=== PATIENT | male | born 1990 ===

== ENCOUNTER 2017-06-22 20:30 | Emergency (ER) | payer SELFPAY ==
[2017-06-22 20:31] VITALS: BMI 22.6
[2017-06-22 20:40] VITALS: BP 139/79; TEMP 98.2
[2017-06-22] MEDS ORDERED: Albuterol-Ipratrop 3 mg / 0.5 (3 ml) UD INH STA (21:08)
--- NOTE | 2017-06-22 21:30 | ED PDOC ---
HPI: SOB/CHF/COPD Time Seen by Provider: 06/22/17 20:43 Chief Complaint (Nursing): Shortness Of Breath Chief Complaint (Provider): Shortness of breath, asthma exacerbation History Per: Patient History/Exam Limitations: no limitations Onset/Duration Of Symptoms: Hrs Current Symptoms Are (Timing): Still Present Additional Complaint(s): The patient is a 26yo male, past medical history of asthma, presents to the ED for evaluation of chest tightness and shortness of breath, present since 1600. Patient also reports cough, rhinorrhea and sore throat since yesterday; patient states URI symptoms usually triggers his asthma exacerbation but the patient has not had an episode in a while so he did not have an inhaler to use. Patient states his symptoms worsened over time, prompting his visit to the ED. Patient reports green sputum but denies any hemoptysis; he denies any fever or chills but reports intermittent sweats last day. Patient denies any vomiting, diarrhea , outright chest pain. He offers no additional medical complaints. PCP: None provided Past Medical History Reviewed: Historical Data, Nursing Documentation, Vital Signs Vital Signs: Last Vital Signs Temp 98.2 F 06/22/17 20:33 Pulse 70 06/22/17 21:32 Resp 20 06/22/17 20:33 BP 139/79 06/22/17 20:33 Pulse Ox 94 L 06/22/17 21:32 - Medical History PMH: Asthma Denies: Chronic Kidney Disease - Surgical History Surgical History: No Surg Hx - Family History Family History: States: No Known Family Hx - Social History Current smoker - smoking cessation education provided: Yes Alcohol: None Drugs: Denies - Immunization History Hx Tetanus Toxoid Vaccination: No - Home Medications Home Medications: Ambulatory Orders Medication Instructions Recorded Amoxicillin/Clavulanate [Augmentin 1 tab PO BID #14 tab 02/15/16 875 MG-125 MG] Fluticasone Nasal [Flonase] 2 actuation NS DAILY #1 bottle 02/15/16 Albuterol HFA [Ventolin HFA 90 2 inhaler INH PRN PRN 08/27/16 mcg/actuation (8 g)] Ondansetron ODT [Zofran ODT] 8 mg PO TID #16 odt 08/27/16 Albuterol HFA [Ventolin HFA 90 2 puff IH Q4H PRN #1 inh 06/22/17 mcg/actuation (8 g)] Prednisone 50 mg PO DAILY #4 tablet 06/22/17 - Allergies Allergies/Adverse Reactions: Allergies Allergy/AdvReac Type Severity Reaction Status Date / Time No Known Allergies Allergy Verified 02/15/16 08:47 Review of Systems ROS Statement: Except As Marked, All Systems Reviewed And Found Negative Constitutional: Positive for: Sweats. Negative for: Fever, Chills Cardiovascular: Negative for: Chest Pain Respiratory: Positive for: Cough, Shortness of Breath, Sputum (green). Negative for: Hemoptysis Gastrointestinal: Negative for: Vomiting, Diarrhea Physical Exam - Reviewed Nursing Documentation Reviewed: Yes Vital Signs Reviewed: Yes - Physical Exam Appears: Positive for: Non-toxic, In Acute Distress Head Exam: Positive for: ATRAUMATIC, NORMOCEPHALIC Skin: Positive for: Warm, Dry Eye Exam: Positive for: EOMI, PERRL ENT: Negative for: Pharyngeal Erythema, Tonsillar Exudate Neck: Positive for: Painless ROM, Supple Cardiovascular/Chest: Positive for: Regular Rate, Rhythm, Chest Non Tender. Negative for: Murmur Respiratory: Positive for: Wheezing, Respiratory Distress. Negative for: Accessory Muscle Use, Rales, Rhonchi Gastrointestinal/Abdominal: Positive for: Soft. Negative for: Tenderness Back: Positive for: Normal Inspection. Negative for: Vertebral Tenderness Extremity: Positive for: Normal ROM. Negative for: Deformity Lymphatic: Negative for: Adenopathy Neurologic/Psych: Positive for: Alert. Negative for: Motor/Sensory Deficits - ECG ECG: Positive for: Interpreted By Me, Viewed By Me ECG Rhythm: Positive for: Normal QRS, Normal ST Segment, Sinus Rhythm Rate: 70 O2 Sat by Pulse Oximetry: 94 (RA) - Progress Re-evaluation Time: 23:00 Condition: Improved Medical Decision Making Medical Decision Making: Time: 2107 Impression: Asthma exacerbation, URI Plan: -- DUoneb 6ml INH -- SOlumedrol 125 mg IM Reassess Scribe Attestation: Documented by Piper Juarez acting as a scribe for Alicia Kern MD. Provider Attestation: All medical record entries made by the Scribe were at my direction and personally dictated by me. I have reviewed the chart and agree that the record accurately reflects my personal performance of the history, physical exam, medical decision making, and the department course for this patient. I have also personally directed, reviewed, and agree with the discharge instructions and disposition. Disposition - Clinical Impression Clinical Impression: Asthma exacerbation - Disposition Referrals: [facility] [place] (CALL SATURDAY TO SETUP APPOINTMENT BY END OF WEEK) [facility] [Outside] Disposition Time: 23:00 Condition: IMPROVED Prescriptions: Albuterol HFA [Ventolin HFA 90 mcg/actuation (8 g)] 2 puff IH Q4H PRN #1 inh PRN Reason: ASTHMA Prednisone 50 mg PO DAILY #4 tablet Instructions: Asthma (ED) Forms: [employer] (Bengali)
[2017-06-22 21:32] VITALS: PULSE 70
[2017-06-22 23:13] VITALS: O2SAT 98
[2017-06-22 23:31] VITALS: RESP 17
--- NOTE | 2017-06-23 09:38 | CARD ---
APPROVED REPORT EKG Measurement Heart [id number] <Conclusion> Normal sinus rhythm with sinus arrhythmia Normal ECG
== END 2017-06-22 23:14 | disposition home or self-care (01) ==
LOC: H.ER 20:30
DX: J45.901 Unspecified asthma with (acute) exacerbation (principal)
CPT/HCPCS: 93005; 96372; 99282; J2930

== ENCOUNTER 2017-10-01 20:57 | Emergency (ER) | payer MEDICAID, OTHER ==
[2017-10-01 20:57] VITALS: BMI 22.6
[2017-10-01 21:09] VITALS: BP 139/85; PULSE 94; RESP 18; TEMP 98; O2SAT 95
[2017-10-01] MEDS ORDERED: Albuterol-Ipratrop 3 mg / 0.5 (3 ml) UD INH STA ×2 (21:18→21:19)
--- NOTE | 2017-10-01 21:37 | ED PDOC ---
HPI: SOB/CHF/COPD Time Seen by Provider: 10/01/17 21:11 Chief Complaint (Nursing): Shortness Of Breath Chief Complaint (Provider): Shortness Of Breath History Per: Patient History/Exam Limitations: no limitations Onset/Duration Of Symptoms: Mins (x30) Current Symptoms Are (Timing): Still Present Additional Complaint(s): 26 year old male with a past medical history of asthma, presents to the ER complaining of chest tightness and shortness of breath for 30 mins. Reports he was at work and came outside to Cover home when he suddenly felt tight in the chest. States his symptoms are characteristic of usual asthma exacerbation for him. His usual triggers are changes in weather. Denies any associated fever, nausea, vomiting, or runny nose. PMD: Non-[facility] provider Past Medical History Reviewed: Historical Data, Nursing Documentation, Vital Signs Vital Signs: Last Vital Signs Temp 98 F 10/01/17 21:06 Pulse 94 H 10/01/17 21:06 Resp 18 10/01/17 21:06 BP 139/85 10/01/17 21:06 Pulse Ox 95 10/01/17 21:40 - Medical History PMH: Asthma Denies: Chronic Kidney Disease - Family History Family History: States: Unknown Family Hx - Social History Current smoker - smoking cessation education provided: Yes (occasional) Alcohol: Occasional Drugs: Denies - Immunization History Hx Tetanus Toxoid Vaccination: No - Home Medications Home Medications: Ambulatory Orders Medication Instructions Recorded Albuterol HFA [Ventolin HFA 90 2 puff IH Q4H PRN #1 inh 06/22/17 mcg/actuation (8 g)] Ibuprofen [Motrin] 600 mg PO TID #30 tab 07/30/17 oxyCODONE/Acetaminophen [Percocet 1 ea PO Q6 #8 tab 07/30/17 5/325 mg Tab] Albuterol HFA [Ventolin HFA 90 1 - 2 puff IH Q6 PRN #1 inhaler 10/01/17 mcg/actuation (8 g)] predniSONE [predniSONE Tab] 60 mg PO QAM #12 tab 10/01/17 - Allergies Allergies/Adverse Reactions: Allergies Allergy/AdvReac Type Severity Reaction Status Date / Time No Known Allergies Allergy Verified 07/31/17 11:33 Review of Systems ROS Statement: Except As Marked, All Systems Reviewed And Found Negative Constitutional: Negative for: Fever ENT: Negative for: Nose Congestion Cardiovascular: Positive for: Other (chest tightness) Respiratory: Positive for: Shortness of Breath Gastrointestinal: Negative for: Nausea, Vomiting Physical Exam - Reviewed Nursing Documentation Reviewed: Yes Vital Signs Reviewed: Yes - Physical Exam Appears: Positive for: Non-toxic, No Acute Distress Head Exam: Positive for: ATRAUMATIC, NORMOCEPHALIC Skin: Positive for: Normal Color, Warm, Dry Eye Exam: Positive for: EOMI, Normal appearance, PERRL ENT: Positive for: Normal ENT Inspection Neck: Positive for: Normal, Painless ROM, Supple Cardiovascular/Chest: Positive for: Regular Rate, Rhythm. Negative for: Murmur Respiratory: Positive for: Wheezing (Bilateral expiratory wheezing at the bases) . Negative for: Respiratory Distress Pulses-Radial (L): 2+ Pulses-Radial (R): 2+ Gastrointestinal/Abdominal: Positive for: Normal Exam, Soft. Negative for: Tenderness Back: Positive for: Normal Inspection. Negative for: L CVA Tenderness, R CVA Tenderness, Vertebral Tenderness Extremity: Positive for: Normal ROM. Negative for: Pedal Edema, Deformity Neurologic/Psych: Positive for: Alert, Oriented - ECG O2 Sat by Pulse Oximetry: 95 (RA) Pulse Ox Interpretation: Normal Medical Decision Making Medical Decision Making: Time: 21:18 Initial Impression: 26 y/o male with shortness of breath in setting of known asthma Initial Plan: --EKG --Prednisone 60 mg PO --Duoneb 3ml INH x2 --Peak Flow pre/post treatment --Pending reevaluation Upon provider reevaluation, patient reports improvement in symptoms. Stable for discharge home. Patient will follow up with PMD for further evaluation. There is agreement to discharge plan. Return if symptoms persist or worsen. Clinical Impression: Asthma exacerbation Scribe Attestation: Documented by Mora Ledesma, acting as a scribe for Amish Mendez MD Provider Scribe Attestation: All medical record entries made by the Scribe were at my direction and personally dictated by me. I have reviewed the chart and agree that the record accurately reflects my personal performance of the history, physical exam, medical decision making, and the department course for this patient. I have also personally directed, reviewed, and agree with the discharge instructions and disposition. Disposition - Clinical Impression Clinical Impression: Asthma exacerbation - Patient ED Disposition Is Patient to be Admitted: No Counseled Patient/Family Regarding: Diagnosis, Need For Followup - Disposition Disposition: Routine/Home Disposition Time: 22:15 Condition: IMPROVED Prescriptions: Albuterol HFA [Ventolin HFA 90 mcg/actuation (8 g)] 1 - 2 puff IH Q6 PRN #1 inhaler PRN Reason: Shortness Of Breath predniSONE [predniSONE Tab] 60 mg PO QAM #12 tab Instructions: Asthma (ED) Forms: [employer] (Romansh)
--- NOTE | 2017-10-02 12:19 | CARD ---
APPROVED REPORT EKG Measurement Heart [id number] [place] [id number] <Conclusion> Sinus rhythm with premature supraventricular complexes Otherwise normal ECG
== END 2017-10-01 22:37 | disposition home or self-care (01) ==
LOC: H.ER 20:57
DX: J45.901 Unspecified asthma with (acute) exacerbation (principal); F17.200 Nicotine dependence, unspecified, uncomplicated; J44.9 Chronic obstructive pulmonary disease, unspecified

== ENCOUNTER 2019-01-21 17:18 | Emergency (ER) | payer OTHER ==
[2019-01-21 17:18] VITALS: BMI 22.6
[2019-01-21 18:00] VITALS: TEMP 98.7; O2SAT 96
[2019-01-21] MEDS ORDERED: Albuterol 0.083% Inhal Sol (2.5 mg/3 mL) UD INH STA (18:28)
[2019-01-21] MEDS ORDERED: Albuterol-Ipratrop 3 mg / 0.5 (3 ml) UD INH STA ×2 (18:28→18:29)
[2019-01-21] MEDS ORDERED: Albuterol-Ipratrop 3 mg / 0.5 (3 ml) UD ONE (18:34)
[2019-01-21] MEDS ORDERED: Albuterol 0.083% Inhal Sol (2.5 mg/3 mL) UD ONE (18:34)
--- NOTE | 2019-01-21 18:52 | ED PDOC ---
HPI: Influenza Time Seen by Provider: 01/21/19 18:12 Chief Complaint: Shortness Of Breath Chief Complaint (Provider): Asthma History Per: Patient Exam Limitations: no limitations Onset/Duration Of Symptoms: Days (x5 ) Sick Contacts (Context): None Additional complaint(s):: Patient is a 28 year old male who reports worsening asthma symptoms since this past Saturday. He states he lost his inhaler and the script to refill it, prompting his visit to the ED. Patient has no history of intubations or admissions for his asthma. He reports of having shortness of breath and as sociated chest tightness. Otherwise: (-) chest pain, (-) fever, (-) tobacco use, (-) leg swelling, (-) calf pain, (-) prolonged immobility. No other complaints. PMD: no provider Past Medical History Reviewed: Historical Data, Nursing Documentation, Vital Signs Vital Signs: Last Vital Signs Temp 98.7 F 01/21/19 17:57 Pulse 64 01/21/19 17:57 Resp 16 01/21/19 17:57 BP 109/70 01/21/19 17:57 Pulse Ox 96 01/21/19 17:57 - Medical History PMH: Asthma - Surgical History Other surgeries: ORIF of the right wrist - Family History Family History: States: Unknown Family Hx - Social History Current smoker - smoking cessation education provided: No Ex-Smoker (has not smoked in the last 12 months): No Alcohol: Social Drugs: Denies - Home Medications Home Medications: Ambulatory Orders Medication Instructions Recorded Albuterol HFA [Ventolin HFA 90 2 puff IH Q4H PRN #1 inh 06/22/17 mcg/actuation (8 g)] Ibuprofen [Motrin] 600 mg PO TID #30 tab 07/30/17 oxyCODONE/Acetaminophen [Percocet 1 ea PO Q6 #8 tab 07/30/17 5/325 mg Tab] Albuterol HFA [Ventolin HFA 90 1 - 2 puff IH Q6 PRN #1 inhaler 10/01/17 mcg/actuation (8 g)] predniSONE [predniSONE Tab] 60 mg PO QAM #12 tab 10/01/17 Albuterol 0.083% [Albuterol 0.083% 2.5 mg IH Q4 #99 ml 01/21/19 Inhal Kimberley (2.5 mg/3 ml) UD] Albuterol Sulfate [Ventolin Hfa] 1 puff INH Q2 #1 unit 01/21/19 Prednisone [Deltasone] 40 mg PO DAILY #10 tablet 01/21/19 - Allergies Allergies/Adverse Reactions: Allergies Allergy/AdvReac Type Severity Reaction Status Date / Time No Known Allergies Allergy Verified 07/31/17 11:33 Review of Systems ROS Statement: Except As Marked, All Systems Reviewed And Found Negative Constitutional: Negative for: Fever Cardiovascular: Negative for: Chest Pain Respiratory: Positive for: Shortness of Breath Musculoskeletal: Negative for: Leg Pain (calf pain or leg swelling) Physical Exam - Reviewed Nursing Documentation Reviewed: Yes Vital Signs Reviewed: Yes - Physical Exam Comments: GENERAL APPEARANCE: Patient is awake, alert, oriented x 3, in no acute distress and is speaking in full sentences. (-) retractions, (-) tripoding SKIN: Warm, dry; (-) cyanosis. EYES: (-) conjunctival injection ENMT: Mucous membranes moist. Airway patent: (-) stridor (-) drooling. Pharynx: clear, uvula midline (-) swelling, (-) erythema. NECK: Supple, FROM CHEST AND RESPIRATORY: (+) bilateral expiratory and inspiratory wheezing; (-) rales, (-) rhonchi (-) accessory muscle use. (+) decreased breath sounds bilaterally. HEART AND CARDIOVASCULAR: (-) irregularity ABDOMEN AND GI: Soft; (-) tenderness. EXTREMITIES: (-) deformity, (-) edema (-) calf tenderness. NEURO AND PSYCH: Mental status as above; (-) focal findings. Gait: steady. Speech: clear. (-) facial asymmetry. Normal cognition. Medical Decision Making Medical Decision Making: Time: 1829 Impression: asthma exacerbation, SOB-resolved Plan: --Albuterol 2.5mg INH --Duoneb 3ml INH x2 --PredniSONE tab 60 mg PO --Re-evaluation 1929 On re-evaluation, patient reports resolution of symptoms. On exam, patient remains AAOx3, in no acute distress. Lungs clear to auscultation, cardiac RRR, repeat neuro exam shows no focal findings. Vitals stable. Lab/Diagnostic results d/w the patient in great detail. Diagnosis of asthma exacerbation, SOB- resolved d/w the patient. Based on history, exam and diagnostic results, plan will be for outpatient follow up with PMD/clinic. Patient instructed to follow-up with pmd / referral provided / the clinic in 1- 2 days without fail. Advised to take medication as prescribed. Return to the emergency room at any time for any new or worsening symptoms. Patient states he fully agrees with and understands discharge instructions. States that he agrees with the plan and disposition. Verbalized and repeated discharge instructions and plan. I have given the patient opportunity to ask any additional questions. Scribe Attestation: Documented by Jared Strickland acting as a scribe for Mirtha York Provider Scribe Attestation: All medical record entries made by the Scribe were at my direction and personally dictated by me. I have reviewed the chart and agree that the record accurately reflects my personal performance of the history, physical exam, medical decision making, and the department course for this patient. I have also personally directed, reviewed, and agree with the discharge instructions and disposition. - ECG O2 Sat by Pulse Oximetry: 96 (RA) Pulse Ox Interpretation: Normal Disposition - Clinical Impression Clinical Impression: Asthma exacerbation, Shortness of breath - Patient ED Disposition Is Patient to be Admitted: No Counseled Patient/Family Regarding: Studies Performed, Diagnosis, Need For Followup, Rx Given - Disposition Referrals: [facility] [Outside] Disposition: Routine/Home Disposition Time: 19:30 Condition: STABLE Additional Instructions: The emergency medical care you received today was directed at your acute symptoms. If you were prescribed any medication, please fill it and take as directed. It may take several days for your symptoms to resolve. Return to the Emergency Department if your symptoms worsen, do not improve, or if you have any other problems. Please contact your doctor in 2 days for re-evaluation and follow up / or call one of the physicians/clinics you have been referred to that are listed on the Patient Visit Information form that is included in your discharge packet. Bring any paperwork you were given at discharge with you along with any medications you are taking to your follow up visit. Our treatment cannot replace ongoing medical care by a primary care provider (PCP) outside of the emergency department. Prescriptions: Albuterol 0.083% [Albuterol 0.083% Inhal Kimberley (2.5 mg/3 ml) UD] 2.5 mg IH Q4 #99 ml Albuterol Sulfate [Ventolin Hfa] 1 puff INH Q2 #1 unit Prednisone [Deltasone] 40 mg PO DAILY #10 tablet Instructions: Asthma in Adults, Shortness of Breath (Dyspnea), Medicines for Asthma Forms: [employer] (Indonesian) Print Language: ARMENIAN - POA Present On Arrival: None
[2019-01-21 20:09] VITALS: BP 110/74; PULSE 80; RESP 18
== END 2019-01-21 19:50 | disposition home or self-care (01) ==
LOC: H.ER 17:18
DX: J45.901 Unspecified asthma with (acute) exacerbation (principal); R06.02 Shortness of breath